=== PATIENT | female | born 2000 | race Two or more races ===

== ENCOUNTER 2019-02-28 05:03 | Emergency (ER) | payer MEDICAID ==
[~2019-02-28] VITALS: Ht 157.5 cm; Wt 72.6 kg
[2019-02-28 05:51] LABS: Urine Bacteria NONE SEEN /hpf (None Seen); Urine Blood 2+ /uL (Negative); Urine Mucus FEW (None Seen); Urine Specific Gravity 1.021 (1.001-1.035); Urine WBC 2 /hpf (0 - 5)
[2019-02-28 07:01] LABS: Basophils # (auto) 0 uL; Basophils % (auto) 0.4 % (0.0-2.0); Eosinophils # (auto) 0.1 uL; Eosinophils % (auto) 1.6 % (0.0-7.0); Hematocrit 40.6 % (36.0-46.0); Hemoglobin 13.9 g/dL (12.2-16.2); Lymphocytes # (auto) 1.2 uL; Lymphocytes % (auto) 22.5 % (10.0-50.0); Mean Corpuscular Hemoglobin 30.6 pg (28.0-32.0); Mean Corpuscular Hgb Conc. 34.3 g/dL (32.0-36.0); Monocytes # (auto) 0.4 uL; Monocytes % (auto) 8.3 % (0.0-12.0); Neutrophils # (auto) 3.6 uL; Neutrophils % (auto) 67.2 % (37.0-80.0); Platelet Count (auto) 170 10^3/uL (140-450); Red Blood Cells 4.56 10^6/uL (4.0-5.20); Red Cell Distribution Width 12.8 % (11.8-14.3); White Blood Cell 5.3 10^3/uL (4.4-10.8)
[2019-02-28 07:16] LABS: INR 0.95 (0.9-1.15); Partial Thromboplastin Time 27.8 sec (23.64-32.05)
[2019-02-28 07:22] LABS: Albumin 3.3 g/dL (3.4-5.0); BUN/Creatinine Ratio 14.8; Calcium 8.6 mg/dL (8.5-10.1); Potassium 3.6 mmol/L (3.5-5.1)
[2019-02-28 07:24] LABS: Bilirubin, Total 0.2 mg/dL (0.2-1.0); Total Protein 6.7 g/dL (6.4-8.2)
[2019-02-28] MEDS ORDERED: ACETAMINOPHEN 500 MG TAB PO ONE (09:15)
[2019-02-28 10:11] VITALS: BP 96/59
== END 2019-02-28 11:25 | disposition home or self-care (01) ==
LOC: ER 05:03
DX: O36.4XX9 Maternal care for intrauterine death, other fetus (principal); O23.41 Unspecified infection of urinary tract in pregnancy, first trimester; Z3A.01 Less than 8 weeks gestation of pregnancy
CPT/HCPCS: 36415; 76801; 80053; 81001; 84702; 85025; 85610; 85730; 86850; 86900; 86901

== ENCOUNTER 2019-03-02 08:22 | Emergency (ER) | payer MEDICAID ==
[~2019-03-02] VITALS: Ht 157.5 cm; Wt 72.6 kg
[2019-03-02] MEDS ORDERED: SODIUM CHLORIDE 0.9% 1,000 ML IVB ONE ×2 (08:28→10:51)
[2019-03-02 09:01] LABS: Basophils # (auto) 0 uL; Basophils % (auto) 0.3 % (0.0-2.0); Eosinophils # (auto) 0 uL; Eosinophils % (auto) 0.4 % (0.0-7.0); Hemoglobin 12.3 g/dL (12.2-16.2); Lymphocytes # (auto) 1.1 uL; Lymphocytes % (auto) 14.4 % (10.0-50.0); Mean Corpuscular Hemoglobin 29.8 pg (28.0-32.0); Mean Corpuscular Hgb Conc. 33.2 g/dL (32.0-36.0); Mean Corpuscular Volume 89.9 fL (80.0-100.0); Monocytes # (auto) 0.3 uL; Monocytes % (auto) 4.3 % (0.0-12.0); Neutrophils # (auto) 6.3 uL; Neutrophils % (auto) 80.6 % (37.0-80.0); Platelet Count (auto) 174 10^3/uL (140-450); Red Blood Cells 4.12 10^6/uL (4.0-5.20); Red Cell Distribution Width 13.1 % (11.8-14.3); White Blood Cell 7.8 10^3/uL (4.4-10.8)
[2019-03-02 09:17] LABS: Albumin 3.1 g/dL (3.4-5.0); BUN/Creatinine Ratio 14.1; Calcium 8.3 mg/dL (8.5-10.1)
[2019-03-02 09:52] LABS: Bilirubin, Total 0.3 mg/dL (0.2-1.0); Potassium 3.9 mmol/L (3.5-5.1); Total Protein 6.4 g/dL (6.4-8.2)
[2019-03-02] MEDS ORDERED: NALBUPHINE HCL 10 MG/1ml INJECTION IV ONE (11:00)
[2019-03-02] MEDS: PROMETHAZINE HCL 25 MG/ML 1ML IV PRN ×2 (11:15→13:38)
[2019-03-02] MEDS ORDERED: LORazepam 2MG/ML-1ML VIAL ONE (11:16)
[2019-03-02 11:23] LABS: INR 0.97 (0.9-1.15); Partial Thromboplastin Time 24.1 sec (23.64-32.05)
[2019-03-02] MEDS ORDERED: LORazepam 2MG/ML-1ML VIAL IV ONE (11:30)
[2019-03-02] MEDS ORDERED: METHYLERGONOVINE MALEATE 0.2 MG/ML AMP IM ONE (12:30)
[2019-03-02 13:12] VITALS: BP 104/53
== END 2019-03-02 13:40 | disposition home or self-care (01) ==
LOC: EDBD 08:22 → ER 08:22
DX: O03.9 Complete or unspecified spontaneous abortion without complication (principal); O26.811 Pregnancy related exhaustion and fatigue, first trimester; E44.1 Mild protein-calorie malnutrition; R42 Dizziness and giddiness; Z3A.10 10 weeks gestation of pregnancy
CPT/HCPCS: 36415; 76801; 80053; 83690; 83735; 85025; 85610; 85730; 94761; 96361; 96372; 96374; 99284; J2060; J2210; J2300; J2550; J7030

== ENCOUNTER 2019-07-02 05:22 | Emergency (ER) | payer MEDICAID ==
[~2019-07-02] VITALS: Ht 152.4 cm; Wt 79.8 kg
[2019-07-02 07:06] LABS: Urine Bacteria FEW /hpf (None Seen); Urine Blood 2+ /uL (Negative); Urine Mucus FEW (None Seen); Urine Specific Gravity 1.027 (1.001-1.035); Urine WBC 7 /hpf (0 - 5)
[2019-07-02 07:30] LABS: Basophils # (auto) 0 uL; Basophils % (auto) 0.5 % (0.0-2.0); Eosinophils # (auto) 0.1 uL; Hemoglobin 11.4 g/dL (12.2-16.2); Lymphocytes # (auto) 1.4 uL; Monocytes # (auto) 0.4 uL; Red Cell Distribution Width 18.7 % (11.8-14.3)
[2019-07-02 07:36] LABS: Eosinophils % (auto) 2.4 % (0.0-7.0); Hematocrit 35.4 % (36.0-46.0); Lymphocytes % (auto) 34.3 % (10.0-50.0); Mean Corpuscular Hemoglobin 23.2 pg (28.0-32.0); Mean Corpuscular Hgb Conc. 32.2 g/dL (32.0-36.0); Mean Corpuscular Volume 71.9 fL (80.0-100.0); Monocytes % (auto) 9.8 % (0.0-12.0); Neutrophils # (auto) 2.1 uL; Nucleated Red Blood Cells % 0.1 %; Platelet Count (auto) 220 10^3/uL (140-450); Red Blood Cells 4.92 10^6/uL (4.0-5.20)
[2019-07-02 07:59] LABS: Albumin 3.2 g/dL (3.4-5.0); BUN/Creatinine Ratio 16.4; Calcium 8.2 mg/dL (8.5-10.1); Potassium 4.4 mmol/L (3.5-5.1)
[2019-07-02 08:01] LABS: Bilirubin, Total 0.1 mg/dL (0.2-1.0)
[2019-07-02 09:43] VITALS: BP 115/69
== END 2019-07-02 09:53 | disposition home or self-care (01) ==
LOC: ER 05:22
DX: N93.9 Abnormal uterine and vaginal bleeding, unspecified (principal); N39.0 Urinary tract infection, site not specified; Z32.02 Encounter for pregnancy test, result negative
CPT/HCPCS: 36415; 76856; 80053; 81001; 84702; 85025

== ENCOUNTER 2021-10-14 16:11 | Emergency (ER) | payer MEDICAID ==
[~2021-10-14] VITALS: Ht 165.1 cm; Wt 90.7 kg
[2021-10-14 16:11] VITALS: BP 125/73
== END 2021-10-14 20:56 | disposition left against medical advice (07) ==
LOC: EDBD 16:11 → ER 16:11
DX: N93.9 Abnormal uterine and vaginal bleeding, unspecified (principal); R42 Dizziness and giddiness; Z53.21 Procedure and treatment not carried out due to patient leaving prior to being seen by health care provider

== ENCOUNTER 2023-05-07 18:35 | Emergency (ER) | payer MEDICAID ==
[~2023-05-07] VITALS: Ht 157.5 cm; Wt 93.3 kg
[2023-05-07 20:00] LABS: Basophils # (auto) 0 10 ^3/uL (0-0.2); Monocytes # (auto) 0.6 10 ^3/uL (0-1.3); Neutrophils # (auto) 4.7 10 ^3/uL (1.6-8.6)
[2023-05-07 20:03] LABS: Hemoglobin 15.5 g/dL (12.2-16.2)
[2023-05-07 20:09] LABS: Alanine Aminotransferase 73 U/L (7-40); Alkaline Phosphatase 88 U/L (46-116); Anion Gap 4.6 (5-15); Aspartate Aminotransferase 37 U/L (13-40); BUN/Creatinine Ratio 10.8 (10.0-20.0); Bilirubin, Total 0.4 mg/dL (0.2-1.0); Blood Urea Nitrogen 9 mg/dL (9-23); Calcium 9.8 mg/dL (8.5-10.1); Carbon Dioxide 29.4 mmol/L (20-30); Chloride 105 mmol/L (98-107); Glucose 95 mg/dL (74-106); Lipase 64 U/L (12-53); Potassium 3.8 mmol/L (3.5-5.1); Sodium 139 mmol/L (136-145); Total Protein 8.1 g/dL (5.7-8.2)
[2023-05-07 20:12] LABS: Basophils % (auto) 0.3 % (0.0-2.0); Eosinophils # (auto) 0.2 10 ^3/uL (0-0.8); Eosinophils % (auto) 3.2 % (0.0-7.0); Hematocrit 46.5 % (36.0-46.0); Lymphocytes # (auto) 2.1 10 ^3/uL (0.4-5.4); Lymphocytes % (auto) 27.8 % (10.0-50.0); Mean Corpuscular Hemoglobin 29.1 pg (28.0-32.0); Mean Corpuscular Hgb Conc. 33.4 g/dL (32.0-36.0); Mean Corpuscular Volume 87.1 fL (80.0-100.0); Monocytes % (auto) 7.7 % (0.0-12.0); Nucleated Red Blood Cells % 0.2 %; Red Blood Cells 5.33 10^6/uL (4.0-5.20); Red Cell Distribution Width 13.4 % (11.8-14.3); White Blood Cell 7.7 10^3/uL (4.4-10.8)
[2023-05-07 20:18] LABS: Urine Bacteria NONE SEEN /hpf (None Seen); Urine Blood Negative /uL (Negative); Urine Clarity Clear (Clear); Urine Color Yellow (Yellow); Urine Protein, UAD TRACE (Negative); Urine Specific Gravity 1.026 (1.001-1.035); Urine Urobilinogen Normal (Negative); Urine WBC 11 /hpf (0 - 5)
[2023-05-07] MEDS ORDERED: IBUP1TAB5 PO ×2 (21:52)
[2023-05-07] MEDS ORDERED: ZOFR4T PO ×2 (21:52)
[2023-05-07] MEDS ORDERED: PHEN-1045 PO ×2 (21:52)
[2023-05-07] MEDS ORDERED: PHENAZOPYRIDINE HCL 100 MG TAB PO ONE (22:00)
[2023-05-07] MEDS ORDERED: IBUPROFEN 800 MG TAB PO ONE (22:00)
[2023-05-07] MEDS ORDERED: cefTRIAXone SOD 1,000 MG VL IM ONE (22:00)
[2023-05-07] MEDS ORDERED: ONDANSETRON ODT 4 MG TAB PO ONE (22:00)
[2023-05-08 01:51] VITALS: BP 121/65; PULSE 96; RESP 20; TEMP 98.6; O2SAT 98
[2023-05-08] MEDS ORDERED: IBUP1TAB5 PO (18:29)
[2023-05-08] MEDS ORDERED: PHEN-1045 PO (18:29)
[2023-05-08] MEDS ORDERED: ZOFR4T PO (18:29)
[2023-05-08] MEDS ORDERED: CEPH500C PO (18:30)
== END 2023-05-08 01:59 | disposition home or self-care (01) ==
LOC: ER 18:35
DX: N39.0 Urinary tract infection, site not specified (principal); R10.31 Right lower quadrant pain; Z79.899 Other long term (current) drug therapy
CPT/HCPCS: 36415; 74176; 80053; 81001; 81025; 83690; 85025; 96372; J0696; Q0162